=== PATIENT | female | born 1980 | race Caucasian/White ===

== ENCOUNTER 2019-01-01 18:14 | Emergency (ER) | payer BC, OTHER ==
[2019-01-01] MEDS ORDERED: NA CHLORIDE 0.9% 1,000 ML ONE (20:34)
[2019-01-01 21:16] LABS: Absolute Lymphocytes (CBC) 1.3 K/uL (0.7-4.9); Basophils % 1.2 % (0-1.3); Lymphocytes % 16.5 % (15.3-44.8); RBC Red Blood Cell Count 4.66 M/uL (3.86-4.86)
[2019-01-01 21:46] LABS: ALT/SGPT 25 U/L (12-78); AST/SGOT 23 U/L (15-37); Albumin 4.3 g/dL (3.4-5.0); Alkaline Phosphatase 72 U/L (45-117); BUN Blood Urea Nitrogen 10 mg/dL (7-18); Bicarbonate 21 mmol/L (21-32); Bilirubin Direct < 0.1 mg/dL (0-0.2); Bilirubin Total 0.3 mg/dL (0.2-1.0); Glucose Level 87 mg/dL (74-106); Lipase 148 U/L (73-393); Potassium 3.8 mmol/L (3.5-5.1); Sodium Level 141 mmol/L (136-145)
--- NOTE | 2019-01-01 21:48 | EDPHYS ---
Physician Documentation [facility] Name: Marisol Alcantara Age: 38 yrs Sex: Female : 1980 Arrival Date: 01/01/2019 Time: 18:19 Bed 11 Private MD: Sandra William ED Physician Markell Mondragon HPI: 01/01 21:24 This 38 yrs old Female presents to ER via Ambulatory with complaints of jr8 Nausea, Dizziness. 21:24 Onset: The symptoms/episode began/occurred acutely, today. Possible causes: unknown. jr8 The symptoms are aggravated by nothing. The symptoms are alleviated by nothing. Associated signs and symptoms: Pertinent positives: abdominal pain. Severity of symptoms: At their worst the symptoms were mild in the emergency department the symptoms have resolved. The patient has not experienced similar symptoms in the past. The patient has not recently seen a physician. Patient with history of GERD/Gastritis. Was treated with 4 week course of PPI. [place] better. Now has been trying to control it with dietary changes and restrictions. Stated that today she started to feel shaky, dizzy, light headed. Started to have abdominal pain in different areas of the stomach. 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 - Social history:: Smoking status: Patient/guardian denies using tobacco. - Ebola Screening: : No symptoms or risks identified at this time. ROS: 21:24 Eyes: Negative for injury, pain, redness, and discharge, ENT: Negative for injury, jr8 pain, and discharge, Neck: Negative for injury, pain, and swelling, Cardiovascular: Negative for chest pain, palpitations, and edema, Respiratory: Negative for shortness of breath, cough, wheezing, and pleuritic chest pain, Back: Negative for injury and pain, MS/Extremity: Negative for injury and deformity, Skin: Negative for injury, rash, and discoloration. 21:24 Abdomen/GI: Positive for abdominal pain, nausea, Negative for vomiting, diarrhea, abdominal cramps, abdominal distension, anorexia, dysphagia, hematemesis, black/tarry stool, rectal pain, rectal bleeding, bowel incontinence, flatulence. 21:24 Neuro: Positive for dizziness. Exam: 21:24 Eyes: Pupils equal round and reactive to light, extra-ocular motions intact. Lids and jr8 lashes normal. Conjunctiva and sclera are non-icteric and not injected. Cornea within normal limits. Periorbital areas with no swelling, redness, or edema. ENT: Nares patent. No nasal discharge, no septal abnormalities noted. Tympanic membranes are normal and external auditory canals are clear. Oropharynx with no redness, swelling, or masses, exudates, or evidence of obstruction, uvula midline. Mucous membranes moist. Neck: Trachea midline, no thyromegaly or masses palpated, and no cervical lymphadenopathy. Supple, full range of motion without nuchal rigidity, or vertebral point tenderness. No Meningismus. Cardiovascular: Regular rate and rhythm with a normal S1 and S2. No gallops, murmurs, or rubs. Normal PMI, no JVD. No pulse deficits. Respiratory: Lungs have equal breath sounds bilaterally, clear to auscultation and percussion. No rales, rhonchi or wheezes noted. No increased work of breathing, no retractions or nasal flaring. Abdomen/GI: Soft, non-tender, with normal bowel sounds. No distension or tympany. No guarding or rebound. No evidence of tenderness throughout. Back: No spinal tenderness. No costovertebral tenderness. Full range of motion. Skin: Warm, dry with normal turgor. Normal color with no rashes, no lesions, and no evidence of cellulitis. MS/ Extremity: Pulses equal, no cyanosis. Neurovascular intact. Full, normal range of motion. Neuro: Awake and alert, GCS 15, oriented to person, place, time, and situation. Cranial nerves II-XII grossly intact. Motor strength 5/5 in all extremities. Sensory grossly intact. Cerebellar exam normal. Normal gait. Vital Signs: 18:30 BP 146 / 82; Pulse 77; Resp 16; Temp 98.9; Pulse Ox 100% on R/A; Weight 62.6 kg; Height hb 5 ft. 7 in. (170.18 cm); Pain 3/10; 20:16 BP 144 / 80; Pulse 82; Resp 18; Pulse Ox 100% on R/A; aj1 22:20 BP 115 / 69; Pulse 64; Resp 16; Pulse Ox 100% on R/A; aj1 18:30 Body Mass Index 21.61 (62.60 kg, 170.18 cm) hb MDM: 19:44 Patient medically screened. jr8 21:47 Data reviewed: vital signs, nurses notes, lab test result(s), EKG, and as a result, I jr8 will discharge patient. Data interpreted: Pulse oximetry: on room air is 100 %. Interpretation: normal. 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 ED course: No acute findings on ECG or labs. Exam benign and without acute findings. Recommended her starting back up on at least pepcid twice daily. To f/u with GI and FP. If worse to come back. Patient good with this plan . 01/01 20:18 Order name: Basic Metabolic Panel; Complete Time: 21:46 01/01 20:18 Order name: CBC with Diff; Complete Time: 21:24 01/01 20:18 Order name: Creatinine for Radiology; Complete Time: 21:35 01/01 20:18 Order name: Hepatic Function; Complete Time: 21:46 01/01 20:18 Order name: Lipase; Complete Time: 21:46 01/01 20:18 Order name: IV Saline Lock; Complete Time: 21:25 01/01 20:18 Order name: Labs collected and sent; Complete Time: 21:22 01/01 20:18 Order name: EKG - Nurse/Tech; Complete Time: 21:22 Administered Medications: 21:25 Drug: NS 0.9% 1000 ml Route: IV; Rate: 1000 ml; Site: left forearm; mg2 Disposition: 01/02 07:10 Co-signature as Attending Physician, Markell Mondragon MD Available for consultation at ps1 all times. . Disposition: 01/01/19 21:48 Discharged to Home. Impression: Nausea, Dizziness and giddiness, Abdominal and pelvic pain. - Condition is Stable. - Discharge Instructions: Abdominal Pain, Adult, Dizziness, Gastritis, Adult. - Medication Reconciliation Form, Thank You Letter, Antibiotic Education, Prescription Opioid Use form. - Follow up: Private Physician; When: 2 - 3 days; Reason: Recheck today's complaints, Continuance of care, Re-evaluation by your physician. - Problem is new. - Symptoms have improved. Signatures: Dispatcher [employer] EDMS Mary Peters RN RN bb Cal Marcial PA PA jr8 Erma Gray RN RN hb Markell Mondragon MD MD [facility] Jayme Tate RN RN mg2 Corrections: (The following items were deleted from the chart) 01/01 23:17 21:48 01/01/2019 21:48 Discharged to Home. Impression: Nausea; Dizziness and giddiness; bb Abdominal and pelvic pain. Condition is Stable. Forms are Medication Reconciliation Form, Thank You Letter, Antibiotic Education, Prescription Opioid Use. Follow up: Private Physician; When: 2 - 3 days; Reason: Recheck today's complaints, Continuance of care, Re-evaluation by your physician. Problem is new. Symptoms have improved. jr8
--- NOTE | 2019-01-01 21:48 | ER ---
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 Pt reports being treated for gastritis in August, takes Pepcid. Pain today was similar to her gastritis pain, but worse. Transition of care: patient was not received from another setting of care. Onset of symptoms was January 01, 2019. Risk Assessment: Do you want to hurt yourself or someone else? Patient reports no desire to harm self or others. Initial Sepsis Screen: Does the patient meet any 2 criteria? No. Patient's initial sepsis screen is negative. Does the patient have a suspected source of infection? No. Patient's initial sepsis screen is negative. Care prior to arrival: None. 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 - Social history:: Smoking status: Patient/guardian denies using tobacco. - Ebola Screening: : No symptoms or risks identified at this time. Screenin:16 Abuse screen: Denies threats or abuse. Denies injuries from another. Nutritional aj1 screening: No deficits noted. Tuberculosis screening: No symptoms or risk factors identified. 22:23 Fall Risk None identified. aj1 Assessment: 20:16 General: Appears in no apparent distress. comfortable, Behavior is calm, cooperative, aj1 appropriate for age. Pain: Complains of pain in abdomen Pain does not radiate. Neuro: Level of Consciousness is awake, alert, obeys commands, Oriented to person, place, time, situation. Cardiovascular: Patient's skin is warm and dry. Respiratory: Airway is patent Respiratory effort is even, unlabored, Respiratory pattern is regular, symmetrical. GI: Abdomen is flat, non-distended, Reports nausea, Patient currently denies bloody stool, diarrhea, vomiting. : No signs and/or symptoms were reported regarding the genitourinary system. EENT: No signs and/or symptoms were reported regarding the EENT system. Derm: No signs and/or symptoms reported regarding the dermatologic system. Skin is pink, warm \T\ dry. normal. Musculoskeletal: No signs and/or symptoms reported regarding the musculoskeletal system. Circulation, motion, and sensation intact. 21:15 Reassessment: Patient appears in no apparent distress at this time. No changes from aj1 previously documented assessment. Patient and/or family updated on plan of care and expected duration. Pain level reassessed. Patient is alert, oriented x 3, equal unlabored respirations, skin warm/dry/pink. 22:15 Reassessment: Discharge pending completion of IV fluids. aj1 23:15 Reassessment: Patient is alert, oriented x 3, equal unlabored respirations, skin bb warm/dry/pink. pt verbalized understanding of and agrees to plan of care discharge instructions given pt ambulated with steady gait to exit. Vital Signs: 18:30 BP 146 / 82; Pulse 77; Resp 16; Temp 98.9; Pulse Ox 100% on R/A; Weight 62.6 kg; Height hb 5 ft. 7 in. (170.18 cm); Pain 3/10; 20:16 BP 144 / 80; Pulse 82; Resp 18; Pulse Ox 100% on R/A; aj1 22:20 BP 115 / 69; Pulse 64; Resp 16; Pulse Ox 100% on R/A; aj1 18:30 Body Mass Index 21.61 (62.60 kg, 170.18 cm) ED Course: 18:19 Patient arrived in ED. mr 18:19 Sandra William MD is Private Physician. mr 18:29 Triage completed. hb 18:30 Arm band placed on. hb 19:39 Cal [facility]cial [facility]. jr8 19:39 Markell Mondragon MD is Attending Physician. jr8 19:43 Shiela Hemphill RN is Primary Nurse. aj1 20:16 Patient has correct armband on for positive identification. Bed in low position. Call aj1 light in reach. 20:16 No provider procedures requiring assistance completed. aj1 21:00 Missed attempt(s): 22 gauge in right antecubital area. Bleeding controlled, band aid aj1 applied, catheter tip intact. 21:00 Initial lab(s) drawn, by me, sent to lab. aj1 21:05 Missed attempt(s): 24 gauge in right forearm. Bleeding controlled, band aid applied, aj1 catheter tip intact. 21:26 Inserted saline lock: 22 gauge in left forearm, using aseptic technique. mg2 22:30 Report given to GUS Hernandez. aj1 23:16 IV discontinued, intact, bleeding controlled, No redness/swelling at site. Pressure bb dressing applied. Administered Medications: 21:25 Drug: NS 0.9% 1000 ml Route: IV; Rate: 1000 ml; Site: left forearm; mg2 Outcome: 21:48 Discharge ordered by . radhames 23:16 Discharged to home ambulatory. bb 23:16 Condition: stable 23:16 Discharge instructions given to patient, Instructed on discharge instructions, follow up and referral plans. Demonstrated understanding of instructions, follow-up care. 23:17 Patient left the ED. bb Signatures: Shiela Hemphill, RN RN Sandra Awad mr Mary Peters, RN RN bb Cal Marcial PA PA jrErma Camarillo RN RN Jayme Tate RN RN mg2
--- NOTE | 2019-01-02 12:26 | EKG ---
Test Date: 2019-01-01 Test Time: 20:37:56 Cctv Technician: BERNABE MEASUREMENT RESULTS: Intervals: Rate: 72 IN: 130 QRSD: 86 QT: 386 QTc: 422 Brush: P: 47 IN: 130 QRS: 75 T: 55 INTERPRETIVE STATEMENTS: Normal sinus rhythm Normal ECG No previous ECG available for comparison Electronically Signed On 01-02-19 12:25:09 CDT by Kun Sanders
== END 2019-01-01 23:17 | disposition home or self-care (01) ==
LOC: ER 18:14
DX: R42 Dizziness and giddiness (principal); R10.2 Pelvic and perineal pain
CPT/HCPCS: 93005; 85025; 80048; 36415; 80076; 83690; J7030; 99283

== ENCOUNTER 2024-05-07 09:05 | Emergency (ER) | payer BC ==
--- OUTSIDE RECORDS SUMMARY | 2024-05-07 09:08 | XMS REPORT | Continuity of Care Document ---
Author Name Unknown Address [address] [facility] [address] [place] [address] [facility] thconnect Address [address] [facility] [place] [address] Care Team Providers Care Shop Hand Name Role Phone SMITH MASSEY Primary Care Physician Unavailab Jayden Gamble Attending Clinician Unavailable Smith Massey Attending Clinician Unavailable CHADD HOWE Attending Clinician Unavailable MD MATTHEW Attending Clinician Unavailab JOSE Maki Attending Clinician Unavailab MILI Zhao Attending Clinician UnavailJericho Madrigal ENP Attending Clinician JERICHO VANCE Attending Clinician Unavailable JERICHO VANCE Admitting Clinician Unavailable Payers Payer Name Policy Type Policy Number Effective Date Expirati on Date Source 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 of right ear Disease Active 10-29 00:00: 00 Stephanie Molinaybold - Externa l Thyroid nodule Thyroid nodule Disease Active 10-29 00:00: 00 Stephanie Molinaybold - Externa l [id number] Blood tests for routine general physical examinatio n Problem Active [facility] [id number] Frequent infections Problem Active [facility] [id number] Exposure to viral hepatitis Problem Active [facility] [id number] Encounter for recheck of abscess following incision and drainage Problem Active [facility] [id number] Abdominal bloating Problem Active [facility] Anxiety Anxiety Problem Active [facility] [id number] Abdominal discomfort Problem Active [facility] [id number] Family history of thyroid cancer Problem Active [facility] [id number] Encounter for vitamin deficiency screening Problem Active [facility] [id number] Gastroesop hageal reflux disease without esophagiti s Problem Active [facility] [id number] Vitamin D deficiency Problem [facility] Allergies, Adverse Reactions, Alerts Allergy Name Allergy Type Status Severity Reaction(s) Onset Date Inactive Date Treating Clinician Comments Source NO KNOWN ALLERGIE S Drug Class Active [facility] Social History Social Habit Start Date Stop Date Quantity Comments Source Gender identity Jill Martínez - External Sexual orientation Wilton Martínez - External History of Tobacco Use [facility] ASSERTION [facility] Tobacco use and exposure 2023-06-10 00:00:00 2023-06-10 00:00:00 Smokeless tobacco non-user Stephanie Martínez - External Alcohol intake 2023-06-10 00:00:00 2023-06-10 00:00:00 .43 /d Stephanie Martínez - External History of Social function 2023-02-14 00:00:00 2023-02-14 00:00:00 Stephanie Martínez - External Education - What is the highest level of school you have completed or the highest degree you have received? 2022-10-29 00:00:00 2022-10-29 00:00:00 Master's degree (e.g., MA, MS, Suri, MEd, STEAM GIGGER, SANDRA) Stephanie Martínez - External Alcohol Comment 2022-10-29 00:00:00 2022-10-29 00:00:00 little Stephanie Martínez - External Exposure to SARS-CoV-2 (event) 2022-03-23 00:00:00 2022-04-02 13:06:00 Not sure [facility] Sex Assigned At 1980 00:00:00 1980 00:00:00 Stephanie Martínez - External Smoking Status Start Date Stop Date Source Tobacco smoking consumption unknown [facility] Never smoked tobacco Stephanie Martínez - External Medications Ordered Medication Name Filled Medication Name Start Date Stop Date Current Medication? Ordering Clinician Indication Dosage Frequency Signature (SIG) Comments Components Source NEOMYCIN-PO LYMYXIN-HC, OTIC, 1 % otic Solution 2022-05 00:00: 00 Yes [id number] 2[drp] [id number] [address]D Place 2 drops into the right ear 3 times daily as needed. Stephanie Martínez - Externa l Pantoprazol e Sodium Pantoprazol e Sodium 08-21 00:00: 00 Yes Na Massey 1 tablet [facility] Pantoprazol e Sodium 40 MG Pantoprazol e Sodium 40 MG No 1{table t} QD Pantoprazo le Sodium 40 MG No Known Medications No Known Medications No [facility] Vital Signs Vital Name Observation Time Observation Value Comments S ource Systolic blood pressure 2023-06-10 19:34:00 121 mm[Hg] Stephanie Seybo ld - External Diastolic blood pressure 2023-06-10 19:34:00 78 mm[Hg] Stephanie Seybo ld - External Heart rate 2023-06-10 19:34:00 65 /min Kelse y Seybold - External Respiratory rate 2023-06-10 19:34:00 16 /min Stephanie Seybold - External Body height 2023-06-10 19:34:00 170.2 cm Jill ey Seybold - External Body weight 2023-06-10 19:34:00 72.576 kg Jill ey Seybold - External BMI 2023-06-10 19:34:00 25.06 kg/m2 Jill ey Seybold - External Body height 2023-04-28 14:53:00 170.2 cm Jill ey Seybold - External Body weight 2023-04-28 14:53:00 72.689 kg Jill ey Seybold - External BMI 2023-04-28 14:53:00 25.10 kg/m2 Jill ey Seybold - External Oxygen saturation in Arterial blood by Pulse oximetry 2023-04-28 14:53:00 98 /min Stephanie Seybo ld - External Systolic blood pressure 2023-04-28 14:53:00 110 mm[Hg] Stephanie Seybo ld - External Diastolic blood pressure 2023-04-28 14:53:00 60 mm[Hg] Stephanie Seybo ld - External Heart rate 2023-04-28 14:53:00 97 /min Kelse y Seybold - External Body temperature 2023-04-28 14:53:00 36.83 Trini Stephanie Seybold - External Respiratory rate 2023-04-28 14:53:00 18 /min Stephanie Seybold - External Systolic blood pressure 2022-10-29 18:45:00 122 mm[Hg] Stephanie Seybo ld - External Diastolic blood pressure 2022-10-29 18:45:00 71 mm[Hg] Stephanie Seybo ld - External Heart rate 2022-10-29 18:45:00 65 /min Kelse y Seybold - External Body temperature 2022-10-29 18:45:00 36.61 Trini Stephanie Seybold - External Respiratory rate 2022-10-29 18:45:00 19 /min Stephanie Seybold - External Body height 2022-10-29 18:45:00 170.2 cm Jill sol Seybold - External Body weight 2022-10-29 18:45:00 69.4 kg Jill ey Seybold - External BMI 2022-10-29 18:45:00 23.96 kg/m2 Jill ey Seybold - External height 2022-08-26 11:10:00 67.00 [in_i] Com [facility] weight 2022-08-26 11:10:00 156.6 [lb_av] Co mmon [facility] temperature 2022-08-26 11:10:00 97.2 [degF] Com [facility] bmi 2022-08-26 11:10:00 24.52 kg/m2 Comm on [facility] oximetry 2022-08-26 11:10:00 97 % Commo n [facility] respiratory rate 2022-08-26 11:10:00 16 /min [facility] blood pressure systolic 2022-08-26 11:10:00 128 mm[Hg] [facility] blood pressure diastolic 2022-08-26 11:10:00 81 mm[Hg] [facility] Systolic blood pressure 2022-04-02 18:03:00 112 mm[Hg] [facility] Diastolic blood pressure 2022-04-02 18:03:00 63 mm[Hg] [facility] Heart rate 2022-04-02 18:03:00 66 /min [facility] Respiratory rate 2022-04-02 18:03:00 16 /min [facility] Oxygen saturation in Arterial blood by Pulse oximetry 2022-04-02 18:03:00 99 /min [facility] Body temperature 2022-04-02 17:14:00 36.83 Trini [facility] Body height 2022-04-02 17:12:00 170.2 cm [facility] Body weight 2022-04-02 17:12:00 69.854 kg [facility] BMI 2022-04-02 17:12:00 24.12 kg/m2 [facility] height 2021-09-22 12:00:00 67.00 [in_i] Com [facility] weight 2021-09-22 12:00:00 158.2 [lb_av] Co mmon [facility] temperature 2021-09-22 12:00:00 97.3 [degF] Com [facility] bmi 2021-09-22 12:00:00 24.77 kg/m2 Comm on [facility] oximetry 2021-09-22 12:00:00 98 % Commo n [facility] respiratory rate 2021-09-22 12:00:00 16 /min [facility] blood pressure systolic 2021-09-22 12:00:00 135 mm[Hg] [facility] blood pressure diastolic 2021-09-22 12:00:00 73 mm[Hg] [facility] Procedures Procedure Date / Time Performed Performing Clinicia n Source CONSENT/REFUSAL FOR DIAGNOSIS AND TREATMENT 2022-04-02 16:52:40 Doctor Unassigned, [place] [facility] Encounters Start Date/Time End Date/Time Encounter Type Admission Type Attending Clinicians Care Facility Care Department Encounter ID Source 2022-10-01 13:55:00 Outpatient AlmendarezSon cheekh [facility] [id number] [facility] 2022-08-24 09:19:00 Outpatient AlmendarezSon cheekh [facility] [id number] [facility] 2022-07-22 13:09:00 Outpatient AlmendarezSon cheekh [facility] [id number] [facility] 2022-07-20 14:36:00 Outpatient [facility]C [facility] [id number] [facility] 2022-07-19 14:32:00 Outpatient [facility]C [facility] [id number] [facility] 2021-11-06 10:26:01 Outpatient MasseySmith santoro [facility] ST[facility] [id number] [facility] 2021-06-24 11:19:51 Outpatient Massey, Na STLMLC STL[facility]C [id number] [facility] 2021-06-24 11:16:52 Outpatient MasseySmith santoro STLMLC STL[facility]C [id number] [facility] 2021-06-24 11:10:10 Outpatient MasseySmith santoro STLMLC STLC [id number] [facility] 2024-05-07 00:00:00 2024-05-07 00:00:00 Outpatient CHADD HOWE [id number] Stephanie [facility] 2023-07-25 00:00:00 2023-07-25 00:00:00 Outpatient MD STEPHANIE MERCHANT [id number] Stephanie [facility] 2023-07-14 00:00:00 2023-07-14 00:00:00 Outpatient MD STEPHANIE MERCHANT [id number] Stephanie [facility] 2023-07-13 00:00:00 2023-07-13 00:00:00 Outpatient CHADD HOWE [id number] Stephanie [facility] 2023-07-13 00:00:00 2023-07-13 00:00:00 Outpatient JOSE MORILLO [id number] Stephanie [facility] 2023-06-28 00:00:00 2023-06-28 00:00:00 Outpatient STEPHANIE CROOKS [id number] Stephanie [facility] 2023-06-27 00:00:00 2023-06-27 00:00:00 Outpatient STEPHANIE CROOKS [id number] [facility] 2023-06-24 00:00:00 2023-06-24 00:00:00 Outpatient MD STEPHANIE MERCHANT [id number] [facility] 2023-06-24 00:00:00 2023-06-24 00:00:00 Outpatient CHADD HOWE STE[facility]ANIE [id number] [facility] 2023-06-24 00:00:00 2023-06-24 00:00:00 Outpatient CHADD HOWE STEPHANIE CROOKS [id number] [facility] 2023-06-10 14:00:00 2023-06-10 14:00:00 Outpatient MILI TUTTLE STEPHANIE CROOKS [id number] Stephanie [facility] 2023-04-28 09:30:00 2023-04-28 09:30:00 Outpatient JOSE MORILLO STEPHANIE CROOKS [id number] [facility] 2023-04-27 00:00:00 2023-04-27 00:00:00 Outpatient STEPHANIE CROOKS [id number] Stephanie [facility] 2022-12-30 00:00:00 2022-12-30 00:00:00 Outpatient CHADD HOWE STEPHANIE CROOKS [id number] [facility] 2022-12-30 00:00:00 2022-12-30 00:00:00 Outpatient PREZACHADD Rosenbaum STEPHANIE CROOKS [id number] [facility] 2022-11-29 00:00:00 2022-11-29 00:00:00 Outpatient CHADD HOWE STEPHANIE CROOKS [id number] Stephanie [facility] 2022-10-29 14:30:00 2022-10-29 14:30:00 Outpatient CHADD HOWE STEPHANIE CROOKS [id number] [facility] 2022-10-04 00:00:00 2022-10-04 00:00:00 (TEL) STLMLC STLMLC [id number] [facility] 2022-10-02 00:00:00 2022-10-02 00:00:00 (TEL) STLMLC STLMLC [id number] [facility] 2022-08-26 00:00:00 2022-08-26 00:00:00 PREV VISIT EST AGE 40-64 STLMLC STLMLC [id number] [facility] 2022-07-19 00:00:00 2022-07-19 00:00:00 (TEL) STLMLC STLMLC [id number] [facility] 2022-04-02 12:08:00 2022-04-02 13:15:00 [facility] [id number] [facility] 2022-04-02 12:08:00 2022-04-02 13:15:00 Emergency [facility] [id number] [facility] 2022-01-13 00:00:00 2022-01-13 00:00:00 OFFICE VISIT EST PT LEVEL 3 STLMLC STLMLC [id number] [facility] 2022-01-12 00:00:00 2022-01-12 00:00:00 (TEL) STLMLC STLMLC [id number] [facility] 2021-09-22 00:00:00 2021-09-22 00:00:00 OFFICE VISIT EST PT LEVEL 3 STLMLC STLMLC [id number] [facility] 2021-09-21 00:00:00 2021-09-21 00:00:00 (TEL) STLMLC STLMLC [id number] [facility] 2019-09-26 15:22:00 2019-09-26 15:22:00 [facility] [id number] [facility] 2019-08-20 14:56:00 2019-08-20 14:56:00 [facility] Family Medicine [facility] [id number] [facility] 2019-08-08 08:14:00 2019-08-08 08:14:[address] [facility] [facility] [id number] [facility] 2019-07-24 16:00:00 2019-07-24 16:00:00 [facility] [id number] [facility] 2019-01-02 10:29:00 2019-01-02 10:29:[address] [facility] [id number] [facility] 2018-08-21 09:30:00 2018-08-21 09:30:[address] [facility] [facility] [id number] [facility] 2018-02-22 14:00:00 2018-02-22 14:00:00 [facility] [id number] [facility] 2018-02-17 16:27:00 2018-02-17 16:27:[address] [facility] [id number] [facility] 2018-02-06 14:45:00 2018-02-06 14:45:[address] [facility] [id number] [facility]
--- NOTE | 2024-05-07 10:07 | RAD REPORT ---
Exam:Humerus Left CLINICAL HISTORY: Left arm pain FINDINGS: A left humeral fracture not seen.
--- NOTE | 2024-05-07 10:07 | RAD REPORT ---
Exam:Elbow Left 3 View HISTORY: Left elbow pain FINDINGS: Nondisplaced fracture radial head. No dislocation Hemarthrosis present.
--- NOTE | 2024-05-07 10:07 | RAD REPORT ---
Exam:Forearm Left Clinical history: Left forearm pain Findings: Nondisplaced fracture radial head.
--- NOTE | 2024-05-07 10:21 | EDPHYS ---
Physician Documentation [facility] Name: Marisol Alcantara Age: 44 yrs Sex: Female : 1980 Arrival Date: 05/07/2024 Time: 09:05 Bed 9 Private MD: ED Physician Surjit Rothman HPI: 05/07 09:47 This 44 yrs old Female presents to ER via Ambulatory with complaints of Arm Pain - rn both, Fall Injury. 09:47 The patient or guardian complains of decreased range of motion, injury, pain. The rn complaints affect the Right and left humerus. Onset: The symptoms/episode began/occurred just prior to arrival. Modifying factors: The symptoms are alleviated by nothing. the symptoms are aggravated by movement. Severity of symptoms: At their worst the symptoms were moderate, in the emergency department the symptoms have improved. The patient has not experienced similar symptoms in the past. Patient reports fall, tripped over her suitcase and fell with both arms tucked in. Reports pain to bilateral humerus regions. No other injuries. No head injury. No neck pain. No back pain. No lower extremity injury. Was able to drive herself here despite the pain. Reports more pain to the left arm when compared to right. 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 - Infectious Disease History:: Denies. - Social history:: Smoking status: Patient denies any tobacco usage or history of. - Family history:: not pertinent. - Hospitalizations: : No recent hospitalization is reported. ROS: 09:47 Constitutional: Negative for fever, chills, and weight loss, Neck: Negative for injury, rn pain, and swelling, Cardiovascular: Negative for chest pain, palpitations, and edema, Respiratory: Negative for shortness of breath, cough, wheezing, and pleuritic chest pain, Abdomen/GI: Negative for abdominal pain, nausea, vomiting, diarrhea, and constipation, Back: Negative for injury and pain, MS/Extremity: Positive for injury and pain to both upper arms Neuro: Negative for headache, weakness, numbness, tingling, and seizure, Exam: :47 Constitutional: This is a well developed, well nourished patient who is awake, alert, rn and in no acute distress. Neck: No midline cervical tenderness Cardiovascular: Regular rate and rhythm. No pulse deficits. MS/ Extremity: Pulses equal, no cyanosis. Neurovascular intact. Painful range of motion left humerus and shoulder. No ecchymosis or significant swelling. No gross deformity. No pain or tenderness of the hand or wrist. Mild proximal forearm and elbow tenderness to palpation. Right arm with complete normal range of motion without focal tenderness. Clavicles without tenderness or deformity. Shoulder blades also normal. Neuro: Awake and alert, GCS 15 Vital Signs: 09:17 BP 135 / 77; Pulse 63; Resp 16; Temp 97.9(TE); Pulse Ox 100% on R/A; Weight 72.57 kg; ss Height 5 ft. 7 in. ; Pain 11/06; 09:17 Body Mass Index 25.06 (72.57 kg, 170.18 cm) ss 09:17 Pain Scale: Adult ss MDM: 09:07 Medical Screening Exam initiated rn 10:18 Differential diagnosis: closed fracture, contusion. Data reviewed: vital signs, nurses rn notes, radiologic studies, plain films, and as a result, I will discharge patient. Counseling: I had a detailed discussion with the patient and/or guardian regarding the historical points, exam findings, and any diagnostic results supporting the discharge/admit diagnosis, radiology results, the need for outpatient follow up, to return to the emergency department if symptoms worsen or persist or if there are any questions or concerns that arise at home. Special discussion: I discussed with the patient/guardian in detail that at this point there is no indication for admission to the hospital. It is understood, however, that if the symptoms persist or worsen the patient needs to return immediately for re-evaluation. Based on the history and exam findings, there is no indication for further emergent testing or inpatient evaluation. I discussed with the patient/guardian the need to see the orthopedic surgeon for further evaluation of the symptoms. ED course: Right elbow x-ray shows nondisplaced radial head fracture per my interpretation.. 05/07 09:15 Order name: XRAY Humerus LEFT; Complete Time: 10: rn 05/07 09:15 Order name: XRAY Elbow LEFT 3 view; Complete Time: : rn 05/07 09:15 Order name: XRAY Forearm LEFT; Complete Time: : rn 05/07 10:16 Order name: Splint - Elbow - Posterior; Complete Time: 10:35 rn 05/07 10:16 Order name: Sling; Complete Time: 10:35 rn Administered Medications: No medications were administered Disposition Summary: 05/07/24 10:20 Discharge Ordered Notes: Location: Home rn Problem: new rn Symptoms: have improved rn Condition: Stable rn Diagnosis - Fracture of head of radius rn Followup: rn - With: Private Physician - When: 5 - 6 days - Reason: Continuance of care Discharge Instructions: - Discharge Summary Sheet rn - How to Use a Sling rn - Radial Head Elbow Fracture learning support services director Forms: - Medication Reconciliation Form rn - Antibiotic campus interviews intern - Prescription Opioid Use rn - Patient Portal Instructions rn - Leadership Thank You Letter rn Prescriptions: - Tramadol 50 mg Oral Tablet - take 1 tablet ORAL route every 8 hours as needed; 12 tablet; Refills: 0, rn Product Selection Permitted Signatures: Dispatcher [employer] Surjit Hartman MD MD rn Blanchard, Shelby, RN RN ss Corrections: (The following items were deleted from the chart) 10:01 09:16 Humerus Right+RAD.RAD.BRZ ordered. EDMS EDMS
--- NOTE | 2024-05-07 10:21 | ER ---
Nurse's Notes [facility] Name: Marisol Alcantara Age: 44 yrs Sex: Female : 1980 Arrival Date: 05/07/2024 Time: 09:05 Bed 9 Private MD: Diagnosis: Fracture of head of radius Presentation: 05/07 09:17 Chief complaint: Patient states: Tripped and fell getting out of bed this morning. Pt ss c/o pain to bilateral arms. Coronavirus screen: Client denies travel out of the [place] in the last 14 days. Ebola Screen: Patient denies exposure to infectious person. Patient denies travel to an Ebola-affected area in the 21 days before illness onset. Initial Sepsis Screen: Does the patient meet any 2 criteria? No. Patient's initial sepsis screen is negative. Does the patient have a suspected source of infection? No. Patient's initial sepsis screen is negative. Risk Assessment: Do you want to hurt yourself or someone else? Patient reports no desire to harm self or others. Onset of symptoms was May 07, 2024. 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 - Infectious Disease History:: Denies. - Social history:: Smoking status: Patient denies any tobacco usage or history of. - Family history:: not pertinent. - Hospitalizations: : No recent hospitalization is reported. Screenin:17 [facility] ED Fall Risk Assessment (Adult) History of falling in the last 3 months, ss including since admission Yes- single mechanical fall (1 pt) Confusion or Disorientation No (0 pts) Intoxicated or Sedated No (0 pts) Impaired Gait No (0 pts) Mobility Assist Device Used No (0 pt) Altered Elimination No (0 pt) Score/Fall Risk Level 0 - 2 = Low Risk. Abuse screen: Denies threats or abuse. Denies injuries from another. Nutritional screening: No deficits noted. Tuberculosis screening: Never had TB. Assessment: 09:17 General: Appears in no apparent distress. comfortable, Behavior is calm, cooperative. ss Pain: Complains of pain in right arm and left arm Pain currently is 6 out of 10 on a pain scale. Quality of pain is described as aching, tender, Pain began suddenly, Is continuous. Neuro: Level of Consciousness is awake, alert, obeys commands, Oriented to person, place, time, situation, Safety Instruction Police Officer are equal bilaterally Speech is normal. Cardiovascular: Pulses are palpable in right radial artery and left radial artery. Respiratory: Airway is patent Respiratory effort is even, unlabored, Respiratory pattern is regular, symmetrical. EENT: Derm: Skin is pink, warm \T\ dry. normal. Musculoskeletal: Range of motion: limited in left elbow. Vital Signs: 09:17 BP 135 / 77; Pulse 63; Resp 16; Temp 97.9(TE); Pulse Ox 100% on R/A; Weight 72.57 kg; ss Height 5 ft. 7 in. ; Pain 6/10; 09:17 Body Mass Index 25.06 (72.57 kg, 170.18 cm) ss 09:17 Pain Scale: Adult ED Course: 09:07 Patient arrived in ED. im 09:07 Surjit Rothman MD is Attending Physician. rn 09:17 Patient has correct armband on for positive identification. ss 09:18 Triage completed. ss 09:19 Arm band placed on right wrist. ss 09:58 X-ray completed. Patient tolerated procedure well. mh1 10:01 XRAY Humerus LEFT In Process Unspecified. EDMS 10:01 XRAY Elbow LEFT 3 view In Process Unspecified. EDMS 10:01 XRAY Forearm LEFT In Process Unspecified. EDMS 10:21 Patient did not have IV access during this emergency room visit. ss 10:53 Betty Herrera, GUS is Primary Nurse. ss 10:53 No provider procedures requiring assistance completed. ss 10:53 Orthoglass splint: posterior long arm splint applied to the left arm. Sling applied to ss left arm. Administered Medications: No medications were administered Medication: 09:17 VIS not applicable for this client. ss Outcome: 10:20 Discharge ordered by . rn 10:53 Discharged to home ambulatory, ss 10:53 Condition: good 10:53 Discharge instructions given to patient, Instructed on discharge instructions, follow up and referral plans. medication usage, Demonstrated understanding of instructions, follow-up care, medications, Prescriptions given X 1, 10:54 Patient left the ED. ss Signatures: Dispatcher [employer] Katie Torres [facility] Surjit Rothman MD MD rn Blanchard, Shelby, RN RN ss Mendoza, Itzel im
[2024-05-07 13:55] VITALS: BP 135/77; TEMP 97.9; O2SAT 100
== END 2024-05-07 10:54 | disposition home or self-care (01) ==
LOC: ER 09:05
PROC: 2W3AX1Z Immobilization of Right Upper Arm using Splint (ICD-10-PCS; principal; 2024-05-07)
DX: S52.121A Displaced fracture of head of right radius, initial encounter for closed fracture (principal); W18.09XA Striking against other object with subsequent fall, initial encounter
CPT/HCPCS: 99283